=== PATIENT | female | born 1960 | race Caucasian/White ===

== ENCOUNTER 2018-06-07 21:41 | Emergency (ER) | payer OTHER ==
[2018-06-07 22:13] VITALS: BP 158/88; PULSE 78; RESP 20; TEMP 98.9
--- NOTE | 2018-06-08 07:11 | US ---
EXAMINATION TYPE: US venous doppler duplex LE RT DATE OF EXAM: 06/08/2018 3:12 AM COMPARISON: NONE CLINICAL HISTORY: Pain. SIDE PERFORMED: Right TECHNIQUE: The lower extremity deep venous system is examined utilizing real time linear array sonog emanuel with graded compression, doppler sonography and color-flow sonography. VESSELS IMAGED: External Iliac Vein (EIV) Common Femoral Vein Deep Femoral Vein Greater Saphenous Vein * Femoral Vein Popliteal Vein Small Saphenous Vein * Proximal Calf Veins (* superficial vessels) Right Leg: Grayscale, color doppler, spectral doppler imaging performed of the deep veins of the rig ht lower extremity. There is normal flow, compressibility, vascular waveforms. IMPRESSION: No sonographic evidence of deep venous thrombosis of the right lower extremity.
== END 2018-06-08 00:33 | disposition home or self-care (01) ==
LOC: EDSEX 21:41 → EC 21:41
DX: M79.661 Pain in right lower leg (principal)
CPT/HCPCS: 99283